=== PATIENT | female | born 1990 | race Caucasian/White ===

== ENCOUNTER 2018-07-25 09:58 | Day surgery (SDC) | payer BC ==
[~2018-07-25] VITALS: Ht 160 cm; Wt 72.0 kg
[2018-07-25] VITALS (12 sets, daily range): BP systolic 136–177; BP diastolic 75–105; PULSE 81–100; RESP 8–18; Ht 160 cm; Wt 72.0 kg
[2018-07-25] MEDS ORDERED: PRED5TAB PO (10:40)
[2018-07-25] MEDS ORDERED: MYCO500T PO (10:41)
[2018-07-25] MEDS ORDERED: HYDR200T5 PO (10:41)
[2018-07-25] MEDS ORDERED: FAMO20TA18 PO (10:43)
[2018-07-25] MEDS ORDERED: FOLI-49 PO (10:43)
[2018-07-25] MEDS ORDERED: ERGO500013 PO (10:44)
[2018-07-25] MEDS ORDERED: GELATIN SIZE 100 SPONGE ONE (10:50)
[2018-07-25] MEDS ORDERED: THROMBIN (BOVINE) 5,000 UNIT VIAL TP ONE (10:50)
[2018-07-25] MEDS ORDERED: LIDOCAINE 1% (MPF) 30 ML INJ ONE (10:50)
[2018-07-25] MEDS ORDERED: HEPARIN 1000 UNITS/ML 10 ML INJ ONE (10:50)
--- NOTE | 2018-07-25 11:50 | HPN ---
Date/Time of Note Date/Time of Note DATE: 07/25/18 TIME: 11:50 Interval H&P Admission Note Pt. seen H&P reviewed: No system changes MARÍA WALKER MD Jul 25, 2018 11:50
[2018-07-25] MEDS ORDERED: HEPARIN 1000 UNITS/ML 10 ML INJ IRR ONE (12:00)
[2018-07-25] MEDS ORDERED: PROPOFOL 20 ML ONE (12:46)
[2018-07-25] MEDS ORDERED: FENTAnyl 50 MCG/ML VIAL ONE ×2 (12:46→13:29)
[2018-07-25] MEDS ORDERED: DEXAMETHASONE 4 MG/ML 5 ML INJ ONE (12:53)
[2018-07-25] MEDS ORDERED: FAMOTIDINE 20 MG INJ ONE (12:53)
[2018-07-25] MEDS ORDERED: METOCLOPRAMIDE 10 MG INJ ONE (12:53)
[2018-07-25] MEDS ORDERED: CEFAZOLIN 1 GM INJ ONE (12:53)
[2018-07-25] MEDS ORDERED: ONDANSETRON 4 MG INJ ONE (12:53)
[2018-07-25] MEDS ORDERED: MIDAZOLAM 1 MG/ML 2 ML INJ IV PRN (13:00)
[2018-07-25] MEDS ORDERED: HYDROmorphONE 1 MG/5 ML IV SYRINGE IV PRN ×2 (13:00)
[2018-07-25] MEDS ORDERED: LABETALOL HCL 20MG INJ IV PRN (13:00)
[2018-07-25] MEDS ORDERED: ONDANSETRON 4 MG INJ IV PRN (13:00)
--- NOTE | 2018-07-25 13:07 | PREAC ---
Date/Time of Note Date/Time of Note DATE: 07/25/18 TIME: 13:06 Anesthesia Eval and Record Evaluation Time Pre-Procedure Interview DATE: 07/25/18 TIME: 13:06 Age 27 Sex female NPO: 8 hrs Preoperative diagnosis SLE, ESRD Planned procedure RIGHT AVF revision Past Medical History Past Medical History: Includes Renal: CKD, ESRD on dialysis, HD last: (today), Other (lupus) GI: Obesity Heme: Anemia Surgery & Anesthesia Issues No known issue Meds Anticoagulation: No Beta Jeaneth within 24 hr: No Reason Beta Jeaneth not given: Pt. not on B-Jeaneth Reported Medications Ergocalciferol (Vitamin D2) (VITAMIN D2) 50,000 Unit Capsule, 74165 UNIT PO ONCE A MONTH, CAP 07/25/18 Famotidine* (Famotidine*) 20 Mg Tablet, 20 MG PO DAILY, #30 TAB 07/25/18 Folic Acid* (Folic Acid*) 1 Mg Tablet, 1 MG PO DAILY, TAB 07/25/18 Hydroxychloroquine Sulfate* (Plaquenil*) 200 Mg Tab, 300 MG PO DAILY, TAB 07/25/18 Mycophenolate Mofetil* (Cellcept*) 500 Mg Tablet, 500 MG PO BID, #60 TAB 07/25/18 Prednisone* (Prednisone*) 5 Mg Tab, 5 MG PO DAILY, TAB 07/25/18 Meds reviewed: Yes Allergies Coded Allergies: lisinopril (Verified Allergy, Severe, 07/25/18) vancomycin (Verified Allergy, Severe, 07/25/18) Allergies Reviewed: Yes Labs/Studies Labs Reviewed: Reviewed by anesthesiologist Result Diagram: 07/25/18 1055 07/25/18 1055 Laboratory Tests 07/25/18 10:55 test: Negative Studies: ECG Pre-procedure Exam Last vitals Vital Signs Date Temp Pulse Resp B/P (MAP) Pulse Ox O2 O2 Flow FiO2 Time Delivery Rate 07/25/18 98.7 100 18 157/96 100 Room Air 11:23 (116) Airway: Adequate mouth opening, Adequate thyromental dist Mallampati: Mallampati II Teeth: Normal Lung: Normal Heart: Normal ASA Physical Status ASA physical status: 3 Emergency: None Planned Anesthetic General/MAC: LMA Planned Pain Management Parenteral pain med, Local by surgeon Pre-operative Attestations ANESTHESIA PREOP FINISHED AT 1235. Prior to commencing anesthesia and surgery, the patient was re-evaluated, there was verification of: *The patient's identity *The results of appropriate recent lab work and preoperative vital signs *The above evaluation not changing prior to induction *Anesthetic plan, risk benefits, alternative and complications discussed with patient/family; questions answered; patient/family understands, accepts and wishes to proceed. MARCE MENDOZA Jul 25, 2018 13:07
[2018-07-25] MEDS ORDERED: LIDOCAINE 2% (SDV) 5 ML INJ ONE (13:10)
[2018-07-25] MEDS ORDERED: PHENYLephrine (100 MCG/ML) 10ML SYG ONE (13:14)
--- NOTE | 2018-07-25 13:49 | SIPON ---
Date/Time of Note Date/Time of Note DATE: 07/25/18 TIME: 13:47 Operative Report Preoperative Diagnosis infected R arm AVG Postoperative Diagnosis same Operation/Procedure Performed ligation and excision of infected R arm AVG Surgeon see signature line assisted living associate none Anesthesia: general Estimated blood loss: 50 - 100 ml's Transfusion Required none Specimen infected R arm AVG / skin ulceration Grafts/Implants none Complications none MARÍA WALKER MD Jul 25, 2018 13:49
[2018-07-25] MEDS ORDERED: DEXTROSE 50% 50 ML SYRINGE ONE (13:59)
[2018-07-25] MEDS ORDERED: DEXTROSE 50% 50 ML SYRINGE IV ONE (14:00)
[2018-07-25] MEDS: HYDROmorphONE 1 MG/5 ML IV SYRINGE IV PRN ×4 (14:00→14:34)
[2018-07-25] MEDS ORDERED: OXYCODONE/ACETAMINOPHEN (5/325) TAB PO ONE (14:00)
--- NOTE | 2018-07-25 14:04 | PAC ---
Date/Time of Note Date/Time of Note DATE: 07/25/18 TIME: 14:03 Post-Anesthesia Notes Post-Anesthesia Note Last documented vital signs POST BP158/90 SPO2 98% RR 16 TEMP 99 HR 86 Vital Signs Date Temp Pulse Resp B/P (MAP) Pulse Ox O2 O2 Flow FiO2 Time Delivery Rate 07/25/18 98.7 100 18 157/96 100 Room Air 11:23 (116) Activity: WNL Respiratory function: WNL Cardiovascular function: WNL Mental status: Baseline Pain reasonably controlled: Yes Hydration appropriate: Yes Nausea/Vomiting absent: Yes MARCE MENDOZA Jul 25, 2018 14:04
[2018-07-25] MEDS ORDERED: HYDROmorphONE 0.5 MG/0.5 ML SYG IV PRN (14:30)
[2018-07-25] MEDS ORDERED: GABAPENTIN 300 MG CAP PO ONE (14:30)
--- NOTE | 2018-07-25 16:44 | OPR ---
DATE OF OPERATION: 07/25/2018 PREOPERATIVE DIAGNOSIS: Infected right arm arteriovenous graft with an infected ulcerated skin. POSTOPERATIVE DIAGNOSIS: Infected right arm arteriovenous graft with an infected ulcerated skin. PROCEDURE PERFORMED: Ligation and excision of infected right arm AV graft. SURGEON: María Keating MD ANESTHESIA: LMA. ESTIMATED BLOOD LOSS: About 50 mL. COMPLICATIONS: There are no intraprocedural complications. INDICATIONS: This is a 27-year-old woman. She has lupus. She has end-stage renal disease on dialys is for several years. She has a right upper arm AV graft states that has been working well, but a mo nth or so ago, she developed a small ulcer that just slowly progressed and now it is fungating ulcera logan ulcer. It has not bled, but it looks like it is about to. I put a PermCath in yesterday, so she could dialyze this morning. I brought her in today for excision of the graft. There is no erythema around in it and the ulceration is localized. It is infected, pseudoaneurysm of the graft. It is c ollagen vascular graft, is a bovine graft. DESCRIPTION OF PROCEDURE: The patient was brought to the operating room and placed on the table in s upine position. After induction of LMA anesthesia, the right arm was prepped and draped in the usual sterile fashion. I covered the ulcerated area with a Tegaderm. I then began by getting control of the graft proximally and made an incision right over the proximal anastomosis at the brachial artery at the elbow transversely then dissected down through the subcutaneous tissue and dissected out the g raft until I get right down into the arterial anastomosis. I then ligated it with 2-0 silk ties and then I went to the upper arm where the graft was well incorporated. There is no sign of infection an d then made a transverse incision over the graft there as well, dissected down to the graft and then circumferentially dissected it out and placed again 2-0 silk ties around the graft to tie off the jj ous outflow. I then transected the graft at either end there and at this point, portions of the marissa t were well incorporated. There is no sign of any infection. I then oversewed the arterial limb the re after double ligating with 0 silk ties. I then oversewed it with a 5-0 Prolene suture in a runnin g standard vascular surgical fashion. I then closed the 2 incisions using 3-0 Vicryl and 4-0 Monocry l sutures. I then placed Dermabond over the sutures. Now that I had isolated the graft and ligated the inflow and outflow, I then went to the infected portion. I removed the Tegaderm there. I excise d an ellipse about 4 cm in length about 2 cm in width over the infected pseudoaneurysm and I just exc ised it en bloc. I incised outward. The tissue was healthy and there was no infection. I went unde r the graft as well and just removed all of that infected tissue in 1 piece. The tissue that was rem aining was all healthy with no infection. I got hemostasis using electrocautery and then reapproxima logan the skin using 3-0 Vicryl and 4-0 Monocryl suture again, brought the skin together. There is ple nty of extra skin and closed without any tension. I then placed a Dermabond and then we wrapped her arm with an Sonido wrap. She was extubated in the operating room and transferred to the recovery room i n stable condition. She tolerated the procedure well without any complications. We will have to let everything heal and then I plan for new graft in the future whether it will be in the left arm or an other one on the right. I will have to see how she does after everything is healed. Dictated By: MARÍA KIMBLE/PAYAL Conf#: [id number] DID#: [id number] CC: TIMMY HOLLOWAY MD;*[facility]*
== END 2018-07-25 15:54 | disposition home or self-care (01) ==
LOC: SDS 09:58
PROVIDERS: ATTEND Surgery Vascular Surgery
DX: T82.7XXA Infection and inflammatory reaction due to other cardiac and vascular devices, implants and grafts, initial encounter (principal); Y84.1 Kidney dialysis as the cause of abnormal reaction of the patient, or of later complication, without mention of misadventure at the time of the procedure; I12.0 Hypertensive chronic kidney disease with stage 5 chronic kidney disease or end stage renal disease; N18.6 End stage renal disease; M32.8 Other forms of systemic lupus erythematosus
CPT/HCPCS: 35903; 37607; 71045; 80053; 82962; 84703; 85025; 85610; 85730; 87070; 87075; 87116; 88304; 93005; J0690; J1100; J1170; J1644; J2370; J2405; J2765; J3010

== ENCOUNTER 2018-12-14 09:20 | Day surgery (SDC) | payer BC, OTHER ==
[2018-12-13 16:43] VITALS: Ht 160 cm; Wt 71.4 kg
[2018-12-14] VITALS (16 sets, daily range): BP systolic 136–174; BP diastolic 70–104; PULSE 74–96; RESP 12–19
[~2018-12-14] VITALS: Ht 160 cm; Wt 71.4 kg
[~2018-12-14 09:20] MED LIST: ASPI81TA52 PO; CARV6.2579 PO; ERGO500013 PO; FAMO20TA18 PO; FOLI-49 PO; HEPA500021 IJ; HYDR200T5 PO; LOSA25TA12 PO; MYCO500T PO; PRED10TA PO; PRED5TAB PO; SULF1TAB31 PO
[2018-12-14] MEDS ORDERED: SOD CHLORIDE 0.9% 500 ML IV ONE (10:30)
[2018-12-14] MEDS ORDERED: LABETALOL HCL 20MG INJ IV PRN (11:30)
[2018-12-14] MEDS ORDERED: ONDANSETRON 4 MG INJ IV PRN (11:30)
[2018-12-14] MEDS ORDERED: HEPARIN 1000 UNITS/ML 10 ML INJ IRR ONE (11:30)
[2018-12-14] MEDS ORDERED: MEPERIDINE 25 MG INJ IV PRN (11:30)
[2018-12-14] MEDS ORDERED: HYDROmorphONE 1 MG/5 ML IV SYRINGE IV PRN ×3 (11:30)
[2018-12-14] MEDS ORDERED: DIPHENHYDRAMINE 50 MG INJ IV PRN (11:30)
[2018-12-14] MEDS ORDERED: FENTAnyl 50 MCG/ML VIAL IV PRN ×3 (11:30)
[2018-12-14] MEDS ORDERED: hydrALAzine 20 MG INJ IV PRN (11:30)
[2018-12-14] MEDS ORDERED: MIDAZOLAM 1 MG/ML 2 ML INJ ONE (11:32)
[2018-12-14] MEDS ORDERED: FENTAnyl 50 MCG/ML VIAL ONE ×2 (11:32→12:17)
[2018-12-14] MEDS ORDERED: PROPOFOL 20 ML ONE (11:32)
[2018-12-14] MEDS ORDERED: CEFAZOLIN 1 GM INJ ONE (11:32)
[2018-12-14] MEDS ORDERED: HEPARIN 1000 UNITS/ML 10 ML INJ ONE (11:42)
[2018-12-14] MEDS ORDERED: LIDOCAINE 1% (MPF) 30 ML INJ ONE (11:42)
[2018-12-14] MEDS ORDERED: ROPIVACAINE 0.2% 20 ML VIAL ONE (11:51)
[2018-12-14] MEDS ORDERED: METOPROLOL 5 MG INJ ONE (12:07)
[2018-12-14] MEDS ORDERED: LIDOCAINE 1% (MPF) 30 ML INJ INJ ONE (12:10)
[2018-12-14] MEDS ORDERED: hydrALAzine 20 MG INJ ONE (12:17)
== END 2018-12-14 15:48 | disposition home or self-care (01) ==
LOC: SDS 09:20
PROVIDERS: ATTEND Surgery Vascular Surgery
DX: T82.590D Other mechanical complication of surgically created arteriovenous fistula, subsequent encounter (principal); Y84.1 Kidney dialysis as the cause of abnormal reaction of the patient, or of later complication, without mention of misadventure at the time of the procedure; I12.0 Hypertensive chronic kidney disease with stage 5 chronic kidney disease or end stage renal disease; N18.6 End stage renal disease
CPT/HCPCS: 36821; 71045; 80053; 84703; 85025; 85610; 85730; 93005; J0360; J0690; J1644; J2250; J2795; J3010